=== PATIENT | female | born 1960 | race Caucasian/White ===

== ENCOUNTER 2020-02-12 11:31 | Outpatient (CLI) | payer OTHER | END 2020-02-12 15:00 | disposition home or self-care (01) | LOC: LAB 11:31 | PROVIDERS: ATTEND General Practice | DX: J11.1 Influenza due to unidentified influenza virus with other respiratory manifestations (principal); R07.0 Pain in throat; R53.81 Other malaise ==

== ENCOUNTER → 2020-02-12 | Outpatient (CLI) | payer OTHER | END | disposition home or self-care (01) | LOC: TOM 12:35 | PROVIDERS: ATTEND General Practice | DX: M79.671 Pain in right foot (principal) ==